=== PATIENT | female | born 1990 | race Two or more races ===

== ENCOUNTER 2018-04-08 19:01 | Inpatient (IN) | payer BC ==
[2018-04-08] MEDS: DOCUSATE SODIUM 250 MG CAP PO (21:00)
[2018-04-08] MEDS: QUETIAPINE 25 MG TAB PO (21:31)
[2018-04-08] MEDS: FAMOTIDINE 20 MG TAB PO (21:31)
[2018-04-08] MEDS: GABAPENTIN 300 MG CAP PO (21:31)
[2018-04-08] MEDS: METOPROLOL 25 MG TAB PO (21:32)
[2018-04-08] MEDS: ACETAMINOPHEN 325 MG TAB PO (21:33)
[2018-04-08 23:24] LABS: ADD UMIC NO; UR ASCORBIC ACID NEGATIVE (NEGATIVE); UR BILIRUBIN (Dip) NEGATIVE (NEGATIVE); UR BLOOD (Dip) NEGATIVE (NEGATIVE); UR CLARITY CLEAR (CLEAR); UR COLOR STRAW (YELLOW); UR GLUCOSE (Dip) NEGATIVE (NEGATIVE); UR KETONES (Dip) NEGATIVE (NEGATIVE); UR LEUKOCYTE ESTERASE (Dip) NEGATIVE Leu/ul (NEGATIVE); UR NITRITE (Dip) NEGATIVE (NEGATIVE); UR SPECIFIC GRAVITY (Dip) 1.005 (1.003-1.030); UR TOTAL PROTEIN (Dip) NEGATIVE (NEGATIVE); UR UROBILINOGEN (Dip) NEGATIVE (NEGATIVE)
[2018-04-09] MEDS: LORAZEPAM 1 MG TAB PO (01:14)
[2018-04-09] MEDS: ACETAMINOPHEN 325 MG TAB PO ×2 (08:38→20:19)
[2018-04-09 08:53] LABS: POTASSIUM 3.7 mmol/L (3.5-5.1)
[2018-04-09 08:54] LABS: ALANINE AMINOTRANSFERASE 20 IU/L (13-69); ALBUMIN 4.4 g/dl (3.3-4.9); ALBUMIN/GLOBULIN RATIO 1.22; ALKALINE PHOSPHATASE 55 IU/L (42-121); ANION GAP 10 (5-13); ASPARTATE AMINO TRANSFERASE 26 IU/L (15-46); BILIRUBIN,INDIRECT 0.4 mg/dl (0-1.1); BILIRUBIN,TOTAL 0.4 mg/dl (0.2-1.3); BLOOD UREA NITROGEN 16 mg/dl (7-20); CALCIUM 9.9 mg/dl (8.4-10.2); CARBON DIOXIDE 26 mmol/L (21-31); CHLORIDE 105 mmol/L (97-110); CREATININE 0.72 mg/dl (0.44-1.00); Estimated GFR > 60 mL/min (>60); GLUCOSE 92 mg/dl (70-220); SODIUM 141 mmol/L (135-144)
[2018-04-09] MEDS: DOCUSATE SODIUM 250 MG CAP PO ×3 (09:00→20:18)
[2018-04-09] MEDS: QUETIAPINE 25 MG TAB PO ×4 (09:16→20:19)
[2018-04-09] MEDS: FAMOTIDINE 20 MG TAB PO ×2 (09:18→20:19)
[2018-04-09] MEDS: GABAPENTIN 300 MG CAP PO ×3 (09:18→20:19)
[2018-04-09] MEDS: METOPROLOL 25 MG TAB PO ×2 (09:19→20:20)
[2018-04-09] MEDS: TRIAMCINOLONE ACET 0.025% 15 GM CR TOP (09:19)
[2018-04-09] MEDS ORDERED: BUSPIRONE 5 MG TAB PO (12:00)
[2018-04-09] MEDS: LIDOCAINE 5% PATCH TD (12:22)
[2018-04-09] MEDS: PAROXETINE 10 MG TAB PO (12:22)
[2018-04-09] MEDS: BUSPIRONE 10 MG TAB PO ×2 (12:27→20:20)
[2018-04-09] MEDS: BALSAM PERU/CASTOR OIL 60 GM TUBE TOP (20:18)
[2018-04-09 21:16] LABS: ADD MAN DIFF? NO
[2018-04-09 21:18] LABS: WHITE BLOOD COUNT 6.8 10^3/ul (4.8-10.8)
[2018-04-09 21:18] LABS: BASOPHILS % 0.6 % (0.0-2.0); EOSINOPHILS # 0.1 10^3/ul (0.0-0.5); EOSINOPHILS % 1.5 % (0.0-7.0); HEMATOCRIT 28.7 % (37.0-47.0); HEMOGLOBIN 9.4 g/dl (12.0-16.0); LYMPHOCYTES % 44.5 % (15.0-51.0); MEAN CORPUSCULAR HEMOGLOBIN 29.5 pg (29.0-33.0); MEAN CORPUSCULAR HGB CONC 32.8 g/dl (32.0-37.0); MEAN PLATELET VOLUME 11.2 fl (7.4-10.4); MONOCYTE # 0.5 10^3/ul (0.3-0.9); MONOCYTES % 7.8 % (0.0-11.0); NEUTROPHIL # 3.1 10^3/ul (1.6-7.5); NEUTROPHILS % 45.5 % (39.0-77.0); PLATELET COUNT 247 10^3/UL (140-415); RED BLOOD COUNT 3.19 10^6/ul (4.20-5.40)
[2018-04-10] MEDS: ACETAMINOPHEN 325 MG TAB PO ×5 (01:47→21:54)
[2018-04-10] MEDS: LORAZEPAM 1 MG TAB PO (02:01)
[2018-04-10] MEDS: BUSPIRONE 10 MG TAB PO ×2 (08:31→20:48)
[2018-04-10] MEDS: METOPROLOL 25 MG TAB PO ×2 (08:32→20:48)
[2018-04-10] MEDS: PAROXETINE 10 MG TAB PO (08:32)
[2018-04-10] MEDS: FAMOTIDINE 20 MG TAB PO ×2 (08:33→20:48)
[2018-04-10] MEDS: GABAPENTIN 300 MG CAP PO ×3 (08:33→20:48)
[2018-04-10] MEDS: QUETIAPINE 25 MG TAB PO ×4 (08:33→20:48)
[2018-04-10] MEDS: BALSAM PERU/CASTOR OIL 60 GM TUBE TOP ×2 (08:34→18:38)
[2018-04-10] MEDS: TRIAMCINOLONE ACET 0.025% 15 GM CR TOP (08:34)
[2018-04-10] MEDS: DOCUSATE SODIUM 250 MG CAP PO ×2 (08:34→21:00)
[2018-04-10] MEDS: LIDOCAINE 5% PATCH TD (08:34)
[2018-04-10] MEDS: DICLOFENAC SODIUM 1% GEL 100 GM TUBE TP ×3 (09:44→18:36)
[2018-04-10 12:48] LABS: IRON 86 ug/dl (35-150)
[2018-04-10 12:57] LABS: % IRON SATURATION 28 % SAT (22-52); TOTAL IRON BINDING CAPACITY 306 ug/dl (241-421)
[2018-04-11] MEDS: ACETAMINOPHEN 325 MG TAB PO ×3 (02:21→16:56)
[2018-04-11] MEDS: LORAZEPAM 1 MG TAB PO ×2 (02:35→16:55)
[2018-04-11 07:48] LABS: ANION GAP 11 (5-13); BLOOD UREA NITROGEN 14 mg/dl (7-20); CALCIUM 9.9 mg/dl (8.4-10.2); CARBON DIOXIDE 27 mmol/L (21-31); CHLORIDE 104 mmol/L (97-110); CREATININE 0.75 mg/dl (0.44-1.00); Estimated GFR > 60 mL/min (>60); GLUCOSE 105 mg/dl (70-220); MAGNESIUM 1.8 mg/dl (1.7-2.5); PHOSPHORUS 5.2 mg/dl (2.5-4.9); POTASSIUM 3.8 mmol/L (3.5-5.1); SODIUM 142 mmol/L (135-144)
[2018-04-11] MEDS: PAROXETINE 10 MG TAB PO (08:29)
[2018-04-11] MEDS: FAMOTIDINE 20 MG TAB PO ×2 (08:30→22:40)
[2018-04-11] MEDS: GABAPENTIN 300 MG CAP PO ×3 (08:30→22:40)
[2018-04-11] MEDS: BUSPIRONE 10 MG TAB PO ×2 (08:30→22:40)
[2018-04-11] MEDS: METOPROLOL 25 MG TAB PO ×2 (08:31→22:46)
[2018-04-11] MEDS: DOCUSATE SODIUM 250 MG CAP PO ×2 (08:31→21:00)
[2018-04-11] MEDS: BALSAM PERU/CASTOR OIL 60 GM TUBE TOP ×2 (09:00→22:39)
[2018-04-11] MEDS: LIDOCAINE 5% PATCH TD (09:28)
[2018-04-11] MEDS: QUETIAPINE 25 MG TAB PO ×4 (09:29→22:46)
[2018-04-12] MEDS: ACETAMINOPHEN 325 MG TAB PO ×4 (02:25→19:02)
[2018-04-12] MEDS: LORAZEPAM 1 MG TAB PO ×2 (05:28→10:18)
[2018-04-12] MEDS: BUSPIRONE 10 MG TAB PO ×3 (08:28→16:04)
[2018-04-12] MEDS: QUETIAPINE 25 MG TAB PO ×4 (08:28→20:48)
[2018-04-12] MEDS: BALSAM PERU/CASTOR OIL 60 GM TUBE TOP ×2 (09:00→21:00)
[2018-04-12] MEDS: LIDOCAINE 5% PATCH TD (09:16)
[2018-04-12] MEDS: GABAPENTIN 300 MG CAP PO ×3 (09:17→20:46)
[2018-04-12] MEDS: PAROXETINE 10 MG TAB PO (09:17)
[2018-04-12] MEDS: DOCUSATE SODIUM 250 MG CAP PO ×2 (09:17→20:53)
[2018-04-12] MEDS: FAMOTIDINE 20 MG TAB PO ×2 (09:17→20:46)
[2018-04-12] MEDS: METOPROLOL 25 MG TAB PO ×2 (09:18→20:48)
[2018-04-13] MEDS: ACETAMINOPHEN 325 MG TAB PO ×5 (00:19→20:03)
[2018-04-13] MEDS: LORAZEPAM 1 MG TAB PO (04:57)
[2018-04-13 06:27] LABS: ADD MAN DIFF? NO
[2018-04-13 06:32] LABS: BASOPHILS % 0.6 % (0.0-2.0); EOSINOPHILS # 0.1 10^3/ul (0.0-0.5); EOSINOPHILS % 1.5 % (0.0-7.0); HEMATOCRIT 31.7 % (37.0-47.0); HEMOGLOBIN 10.2 g/dl (12.0-16.0); LYMPHOCYTES # 2.3 10^3/ul (0.8-2.9); LYMPHOCYTES % 42.2 % (15.0-51.0); MEAN CORPUSCULAR HEMOGLOBIN 29.4 pg (29.0-33.0); MEAN CORPUSCULAR HGB CONC 32.2 g/dl (32.0-37.0); MEAN CORPUSCULAR VOLUME 91.4 fl (82.0-101.0); MEAN PLATELET VOLUME 11.4 fl (7.4-10.4); MONOCYTE # 0.4 10^3/ul (0.3-0.9); MONOCYTES % 7.8 % (0.0-11.0); NEUTROPHIL # 2.6 10^3/ul (1.6-7.5); NEUTROPHILS % 47.7 % (39.0-77.0); PLATELET COUNT 247 10^3/UL (140-415); RED BLOOD COUNT 3.47 10^6/ul (4.20-5.40); RED CELL DISTRIBUTION WIDTH 15.4 % (11.5-14.5)
[2018-04-13 06:32] LABS: WHITE BLOOD COUNT 5.4 10^3/ul (4.8-10.8)
[2018-04-13 07:11] LABS: ANION GAP 9 (5-13); BLOOD UREA NITROGEN 13 mg/dl (7-20); CALCIUM 9.8 mg/dl (8.4-10.2); CARBON DIOXIDE 28 mmol/L (21-31); CHLORIDE 104 mmol/L (97-110); CREATININE 0.74 mg/dl (0.44-1.00); Estimated GFR > 60 mL/min (>60); GLUCOSE 95 mg/dl (70-220); POTASSIUM 3.9 mmol/L (3.5-5.1); SODIUM 141 mmol/L (135-144)
[2018-04-13 07:15] LABS: IRON 69 ug/dl (35-150)
[2018-04-13] MEDS: QUETIAPINE 25 MG TAB PO ×5 (07:21→20:04)
[2018-04-13 07:25] LABS: % IRON SATURATION 23 % SAT (22-52); TOTAL IRON BINDING CAPACITY 297 ug/dl (241-421)
[2018-04-13 08:04] LABS: ERYTHROCYTE SEDIMENTATION RATE 18 mm/Hr (0-20)
[2018-04-13] MEDS: BALSAM PERU/CASTOR OIL 60 GM TUBE TOP ×2 (08:42→20:03)
[2018-04-13] MEDS: LIDOCAINE 5% PATCH TD (08:43)
[2018-04-13] MEDS: BUSPIRONE 10 MG TAB PO ×3 (08:43→17:29)
[2018-04-13] MEDS: DOCUSATE SODIUM 250 MG CAP PO ×2 (08:43→20:03)
[2018-04-13] MEDS: PAROXETINE 10 MG TAB PO (08:43)
[2018-04-13] MEDS: FAMOTIDINE 20 MG TAB PO ×2 (08:43→20:08)
[2018-04-13] MEDS: GABAPENTIN 300 MG CAP PO ×3 (08:43→20:03)
[2018-04-13] MEDS: METOPROLOL 25 MG TAB PO ×2 (09:00→20:07)
[2018-04-13] MEDS ORDERED: IBUPROFEN 400 MG TAB PO (12:30)
[2018-04-13] MEDS ORDERED: IBUPROFEN 200 MG TAB PO ×2 (12:37→21:00)
[2018-04-13] MEDS: IBUPROFEN 200 MG TAB PO ×2 (13:10→23:14)
[2018-04-14] MEDS: ACETAMINOPHEN 325 MG TAB PO ×2 (01:17→23:25)
[2018-04-14] MEDS: LORAZEPAM 1 MG TAB PO ×2 (01:19→23:25)
[2018-04-14] MEDS: QUETIAPINE 25 MG TAB PO ×4 (05:52→20:35)
[2018-04-14] MEDS: BUSPIRONE 10 MG TAB PO ×2 (07:58→12:11)
[2018-04-14] MEDS: DOCUSATE SODIUM 250 MG CAP PO ×2 (08:23→20:33)
[2018-04-14] MEDS: FAMOTIDINE 20 MG TAB PO ×2 (08:23→20:34)
[2018-04-14] MEDS: PAROXETINE 10 MG TAB PO (08:23)
[2018-04-14] MEDS: GABAPENTIN 300 MG CAP PO ×3 (08:23→20:33)
[2018-04-14] MEDS: METOPROLOL 25 MG TAB PO ×2 (08:24→20:34)
[2018-04-14] MEDS: IBUPROFEN 200 MG TAB PO ×2 (08:25→20:35)
[2018-04-14] MEDS: BALSAM PERU/CASTOR OIL 60 GM TUBE TOP ×2 (08:26→20:36)
[2018-04-14] MEDS: LIDOCAINE 5% PATCH TD (08:26)
[2018-04-14] MEDS: DICLOFENAC SODIUM 1% GEL 100 GM TUBE TP (23:48)
[2018-04-15] MEDS: QUETIAPINE 25 MG TAB PO ×4 (06:25→20:46)
[2018-04-15] MEDS: ACETAMINOPHEN 325 MG TAB PO ×2 (06:26→17:33)
[2018-04-15] MEDS: BUSPIRONE 10 MG TAB PO ×3 (08:03→15:58)
[2018-04-15] MEDS: DOCUSATE SODIUM 250 MG CAP PO ×2 (08:55→20:45)
[2018-04-15] MEDS: PAROXETINE 20 MG TAB PO (08:55)
[2018-04-15] MEDS: FAMOTIDINE 20 MG TAB PO ×2 (08:55→20:45)
[2018-04-15] MEDS: LIDOCAINE 5% PATCH TD (08:58)
[2018-04-15] MEDS: METOPROLOL 25 MG TAB PO ×2 (08:58→20:47)
[2018-04-15] MEDS: GABAPENTIN 300 MG CAP PO ×3 (08:58→20:45)
[2018-04-15] MEDS: IBUPROFEN 200 MG TAB PO ×2 (08:59→20:45)
[2018-04-15] MEDS: BALSAM PERU/CASTOR OIL 60 GM TUBE TOP ×2 (08:59→20:46)
[2018-04-15] MEDS ORDERED: LIDOCAINE 1% (MPF) 10 ML INJ INJ (19:30)
[2018-04-15] MEDS: DEXAMETHASONE 10 MG/ML 1 ML INJ IV (20:48)
[2018-04-15] MEDS: LIDOCAINE 1% (MPF) 5 ML VIAL INJ (20:48)
[2018-04-16] MEDS: ACETAMINOPHEN 325 MG TAB PO ×3 (01:47→18:50)
[2018-04-16] MEDS: LORAZEPAM 1 MG TAB PO (01:49)
[2018-04-16] MEDS: QUETIAPINE 25 MG TAB PO ×4 (06:04→20:15)
[2018-04-16] MEDS: BUSPIRONE 10 MG TAB PO ×3 (08:00→16:09)
[2018-04-16] MEDS: PAROXETINE 20 MG TAB PO (08:00)
[2018-04-16] MEDS: IBUPROFEN 200 MG TAB PO ×2 (08:00→20:16)
[2018-04-16] MEDS: GABAPENTIN 300 MG CAP PO ×3 (08:00→20:15)
[2018-04-16] MEDS: METOPROLOL 25 MG TAB PO ×3 (08:01→21:00)
[2018-04-16] MEDS: FAMOTIDINE 20 MG TAB PO ×2 (08:01→20:17)
[2018-04-16] MEDS: DOCUSATE SODIUM 250 MG CAP PO ×2 (08:01→20:15)
[2018-04-16] MEDS: LIDOCAINE 5% PATCH TD (09:00)
[2018-04-16] MEDS: BALSAM PERU/CASTOR OIL 60 GM TUBE TOP ×2 (12:25→20:17)
[2018-04-16] MEDS: DICLOFENAC SODIUM 1% GEL 100 GM TUBE TP (21:12)
[2018-04-17] MEDS: ACETAMINOPHEN 325 MG TAB PO ×3 (03:17→17:49)
[2018-04-17] MEDS: QUETIAPINE 25 MG TAB PO ×4 (06:10→21:10)
[2018-04-17] MEDS: BUSPIRONE 10 MG TAB PO ×3 (07:42→16:05)
[2018-04-17] MEDS: GABAPENTIN 300 MG CAP PO ×3 (07:47→21:07)
[2018-04-17] MEDS: DOCUSATE SODIUM 250 MG CAP PO ×2 (07:47→21:07)
[2018-04-17] MEDS: IBUPROFEN 200 MG TAB PO ×3 (07:48→21:07)
[2018-04-17] MEDS: METOPROLOL 25 MG TAB PO ×2 (07:48→21:09)
[2018-04-17] MEDS: FAMOTIDINE 20 MG TAB PO ×2 (07:49→21:07)
[2018-04-17] MEDS: LIDOCAINE 5% PATCH TD (07:50)
[2018-04-17] MEDS: PAROXETINE 20 MG TAB PO (07:59)
[2018-04-17] MEDS: BALSAM PERU/CASTOR OIL 60 GM TUBE TOP ×2 (10:05→21:10)
[2018-04-17] MEDS: DICLOFENAC SODIUM 1% GEL 100 GM TUBE TP (21:10)
[2018-04-18] MEDS: LORAZEPAM 1 MG TAB PO (02:02)
[2018-04-18] MEDS: ACETAMINOPHEN 325 MG TAB PO (02:02)
[2018-04-18] MEDS: QUETIAPINE 25 MG TAB PO ×4 (06:33→20:49)
[2018-04-18] MEDS: GABAPENTIN 300 MG CAP PO ×3 (08:38→20:48)
[2018-04-18] MEDS: FAMOTIDINE 20 MG TAB PO ×2 (08:38→20:48)
[2018-04-18] MEDS: PAROXETINE 20 MG TAB PO (08:38)
[2018-04-18] MEDS: DOCUSATE SODIUM 250 MG CAP PO ×2 (08:38→20:48)
[2018-04-18] MEDS: IBUPROFEN 200 MG TAB PO ×2 (08:38→20:48)
[2018-04-18] MEDS: LIDOCAINE 5% PATCH TD (08:39)
[2018-04-18] MEDS: BUSPIRONE 10 MG TAB PO ×3 (08:44→16:12)
[2018-04-18] MEDS: BALSAM PERU/CASTOR OIL 60 GM TUBE TOP ×2 (08:44→20:51)
[2018-04-18] MEDS: METOPROLOL 25 MG TAB PO (08:48)
[2018-04-19] MEDS: ACETAMINOPHEN 325 MG TAB PO (04:24)
[2018-04-19] MEDS: QUETIAPINE 25 MG TAB PO ×4 (06:13→20:42)
[2018-04-19] MEDS: BUSPIRONE 10 MG TAB PO ×3 (08:04→16:16)
[2018-04-19] MEDS: GABAPENTIN 300 MG CAP PO ×3 (08:42→20:42)
[2018-04-19] MEDS: IBUPROFEN 200 MG TAB PO ×2 (08:43→20:41)
[2018-04-19] MEDS: LIDOCAINE 5% PATCH TD (08:43)
[2018-04-19] MEDS: FAMOTIDINE 20 MG TAB PO ×2 (08:43→20:42)
[2018-04-19] MEDS: PAROXETINE 20 MG TAB PO (08:46)
[2018-04-19] MEDS: BALSAM PERU/CASTOR OIL 60 GM TUBE TOP ×2 (08:48→20:42)
[2018-04-19] MEDS: DOCUSATE SODIUM 250 MG CAP PO ×2 (09:52→20:42)
[2018-04-20] MEDS: QUETIAPINE 25 MG TAB PO ×4 (06:03→20:38)
[2018-04-20] MEDS: BUSPIRONE 10 MG TAB PO ×3 (08:08→16:05)
[2018-04-20] MEDS: GABAPENTIN 300 MG CAP PO ×3 (08:08→20:38)
[2018-04-20] MEDS: PAROXETINE 20 MG TAB PO (08:08)
[2018-04-20] MEDS: IBUPROFEN 200 MG TAB PO ×2 (08:08→20:41)
[2018-04-20] MEDS: DOCUSATE SODIUM 250 MG CAP PO ×2 (08:08→20:39)
[2018-04-20] MEDS: FAMOTIDINE 20 MG TAB PO ×2 (08:08→20:39)
[2018-04-20] MEDS: BALSAM PERU/CASTOR OIL 60 GM TUBE TOP ×2 (08:09→20:43)
[2018-04-20] MEDS: LIDOCAINE 5% PATCH TD (08:09)
[2018-04-21] MEDS: QUETIAPINE 25 MG TAB PO ×4 (06:08→20:39)
[2018-04-21] MEDS: BUSPIRONE 10 MG TAB PO ×3 (08:17→16:33)
[2018-04-21] MEDS: DOCUSATE SODIUM 250 MG CAP PO ×2 (08:17→20:38)
[2018-04-21] MEDS: IBUPROFEN 200 MG TAB PO ×2 (08:17→20:39)
[2018-04-21] MEDS: GABAPENTIN 300 MG CAP PO ×3 (08:18→20:38)
[2018-04-21] MEDS: PAROXETINE 20 MG TAB PO (08:18)
[2018-04-21] MEDS: FAMOTIDINE 20 MG TAB PO ×2 (08:19→20:38)
[2018-04-21] MEDS: LIDOCAINE 5% PATCH TD (08:22)
[2018-04-21] MEDS: BALSAM PERU/CASTOR OIL 60 GM TUBE TOP ×2 (11:31→20:39)
[2018-04-21] MEDS: DICLOFENAC SODIUM 1% GEL 100 GM TUBE TP ×2 (11:31→20:40)
[2018-04-22] MEDS: QUETIAPINE 25 MG TAB PO (06:52)
[2018-04-22] MEDS: BUSPIRONE 10 MG TAB PO (08:39)
[2018-04-22] MEDS: GABAPENTIN 300 MG CAP PO (08:40)
[2018-04-22] MEDS: FAMOTIDINE 20 MG TAB PO (08:40)
[2018-04-22] MEDS: IBUPROFEN 200 MG TAB PO (08:40)
[2018-04-22] MEDS: DOCUSATE SODIUM 250 MG CAP PO (08:40)
[2018-04-22] MEDS: PAROXETINE 20 MG TAB PO (08:41)
[2018-04-22] MEDS: LIDOCAINE 5% PATCH TD (08:41)
[2018-04-22] MEDS: BALSAM PERU/CASTOR OIL 60 GM TUBE TOP (08:42)
== END 2018-04-22 11:30 | disposition home or self-care (01) | DRG 945 ==
LOC: VRC 04-18 10:41
PROC: F07Z9FZ Gait Training/Functional Ambulation Treatment using Assistive, Adaptive, Supportive or Protective Equipment (ICD-10-PCS; principal; 2018-04-08)
PROC: F07Z5FZ Bed Mobility Treatment using Assistive, Adaptive, Supportive or Protective Equipment (ICD-10-PCS; 2018-04-08)
PROC: F07Z8FZ Transfer Training Treatment using Assistive, Adaptive, Supportive or Protective Equipment (ICD-10-PCS; 2018-04-08)
PROC: F08Z0FZ Bathing/Showering Techniques Treatment using Assistive, Adaptive, Supportive or Protective Equipment (ICD-10-PCS; 2018-04-08)
PROC: F08Z1FZ Dressing Techniques Treatment using Assistive, Adaptive, Supportive or Protective Equipment (ICD-10-PCS; 2018-04-08)
PROC: F08Z2FZ Grooming/Personal Hygiene Treatment using Assistive, Adaptive, Supportive or Protective Equipment (ICD-10-PCS; 2018-04-08)
DX: S06.9X9D Unspecified intracranial injury with loss of consciousness of unspecified duration, subsequent encounter (principal); F33.3 Major depressive disorder, recurrent, severe with psychotic symptoms; L20.9 Atopic dermatitis, unspecified; G62.9 Polyneuropathy, unspecified; F41.9 Anxiety disorder, unspecified; D64.9 Anemia, unspecified; S60.912D Unspecified superficial injury of left wrist, subsequent encounter; F06.8 Other specified mental disorders due to known physiological condition; F19.10 Other psychoactive substance abuse, uncomplicated; G57.61 Lesion of plantar nerve, right lower limb; M72.2 Plantar fascial fibromatosis; Z87.820 Personal history of traumatic brain injury; Z87.01 Personal history of pneumonia (recurrent); X58.XXXD Exposure to other specified factors, subsequent encounter
CPT/HCPCS: 73630; 73630-LT; 73718; 73721; 80048; 80053; 81003; 82607; 82728; 83540; 83735; 84100; 85025; 85651; 87081; 87086; 92507; 97110; 97112; 97116; 97150; 97163; 97167; 97530; 97535